=== PATIENT | male | born 1950 | race Caucasian/White ===

== ENCOUNTER 2018-09-25 14:58 | Emergency (ER) | payer OTHER ==
[~2018-09-25] VITALS: Ht 162.6 cm; Wt 96.6 kg
[2018-09-25] MEDS ORDERED: LASIX20 MG PO (15:13)
[2018-09-25] MEDS ORDERED: COZAAR50 MG PO (15:13)
[2018-09-25] MEDS ORDERED: TOPROL XL25 M1 PO (15:13)
== END 2018-09-25 19:12 | disposition home or self-care (01) ==
LOC: ER 14:58
DX: R42 Dizziness and giddiness (principal); R51 Headache

== ENCOUNTER 2018-12-05 20:13 | Emergency (ER) | payer OTHER ==
[~2018-12-05] VITALS: Ht 162.6 cm; Wt 93.4 kg
[~2018-12-05 20:13] MED LIST: COZAAR50 MG PO; LASIX20 MG PO; TOPROL XL25 M1 PO
[2018-12-05] MEDS ORDERED: LANTUS SOL100 UNIT/1 (20:30)
[2018-12-05] MEDS ORDERED: METOCLOPRAMIDE10 MG PO (22:28)
[2018-12-05] MEDS ORDERED: MECLIZINE HCL25 MG PO (22:28)
[2018-12-05] MEDS ORDERED: KETO10TA2 PO (22:28)
[2018-12-05] MEDS ORDERED: ZITHROMAX500 MG PO (22:28)
[2018-12-05] MEDS ORDERED: FLONASE ALLERG9.9 ML NASAL (22:29)
== END 2018-12-06 00:10 | disposition home or self-care (01) ==
LOC: ER 20:13
DX: H66.92 Otitis media, unspecified, left ear (principal); R42 Dizziness and giddiness

== ENCOUNTER 2019-01-04 18:31 | Emergency (ER) | payer OTHER ==
[~2019-01-04] VITALS: Ht 162.6 cm; Wt 98.0 kg
[~2019-01-04 18:31] MED LIST changes: +FLONASE ALLERG9.9 ML NASAL; +KETO10TA2 PO; +LANTUS SOL100 UNIT/1; +MECLIZINE HCL25 MG PO; +METOCLOPRAMIDE10 MG PO; +ZITHROMAX500 MG PO
== END 2019-01-05 00:20 | disposition home or self-care (01) ==
LOC: ER 18:31
DX: G50.0 Trigeminal neuralgia (principal); H66.92 Otitis media, unspecified, left ear

== ENCOUNTER 2021-09-15 15:05 | Emergency (ER) | payer OTHER ==
[~2021-09-15] VITALS: Ht 162.6 cm; Wt 93.4 kg
== END 2021-09-15 18:46 | disposition home or self-care (01) ==
LOC: ER 15:05
DX: R42 Dizziness and giddiness (principal)